=== PATIENT | female | born 1980 | race Caucasian/White ===

== ENCOUNTER 2016-06-27 09:31 | Emergency (ER) | payer OTHER ==
[~2016-06-27] VITALS: Ht 154.9 cm; Wt 54.5 kg
[2016-06-27 09:38] VITALS: BP 138/99; PULSE 156; RESP 22; O2SAT 97
--- NOTE | 2016-06-27 09:57 | ED.REPORT ---
HPI-Back Pain Under 40 Date of Service Jun 27, 2016 ED Provider: Moises Berrios MD Pt is a 36 y.o. female with a hx of chronic back pain who presents to the ED c/ o low back pain onset 2 days ago. Pt states that she typically has chronic, manageable, mid-back pain and that her recent back pain is lower than normal and more severe. She denies any recent trauma or injury. Associated SOB and lower extremity weakness. She denies fever, vomiting, nausea, abdominal pain, numbness, and urinary/fecal incontinence. Pt reports taking Tylenol everyday for pain, and has not experienced relief. Nursing Notes Stated Complaint: LOW BACK PAIN Chief Complaint: Back Pain or Injury Nursing Notes Reviewed: Yes Allergies: Coded Allergies: No Known Allergies (Unverified , 06/27/16) Miscellaneous Medications Acetaminophen (Tylenol Arthritis) 650 Mg Tablet.er 650 MG PO General Time Seen by MD: 09:56 Chief Complaint Back pain Hx Obtained From: Patient Sudden in Onset?: Yes Onset Occurred: 2 days ago Symptom Duration: Since onset Caused by: Chronic Injury Location: : Perispinal lumbar Quality: Painful Severity: Current: Moderate Past Medical History Past Medical History Thoracic outlet syndrome Past Surgical History Reports: Appendectomy Smoking History Current Every Day Smoker Ambulatory Status Independent Review of Systems Constitutional: Denies: Fever Respiratory: Reports: Shortness of breath GI: Denies: Abdominal pain, Nausea, Vomiting Female: Denies: Incontinence Musculoskeletal: Reports: Back pain Neurologic: Reports: Weakness (Lower extremity), Denies: Bladder dysfunction, Bowel dysfunction, Numbness Complete sys rev & neg: except as marked. Physical Exam Initial Vital Signs Vital Signs (First) Date Time Temp Pulse Resp B/P Pulse Ox O2 Delivery O2 Flow Rate FiO2 06/27/16 09:38 37.3 156 22 138/99 97 Room Air Initial VS: Reviewed Head / Eyes: Atraumatic, Normocephalic Extremities: Vascular intact, Neuro intact Skin: Warm, Dry, No cyanosis Psychiatric: Mood/affect normal, Behavior normal, Normal thought content General/Constitutional: Awake, Alert, No acute distress, Well appearing, Well developed, Well hydrated, Well nourished, Not toxic appearing Back: Atraumatic Flank / Spine / Paraspinal: Positive: Lumbar paraspinal tend..., Lumbar spine tender..., SI joint tender L, SI joint tender R Straight leg test negative Neurologic: Oriented X3, Speech NL, No motor deficits Bilateral lower extremity strength intact Respiratory / Chest: Atraumatic, Breath sounds NL, Breath sounds = bilat, No respiratory distress Cardiovascular: Heart rate NL, Regular rhythm, Heart sounds NL, Peripheral circulation NL Abdomen: Atraumatic, No distention Organomegaly / Mass / Hernia: Positive: Pulsatile mass (Tender midline) Interpretation & Diagnostics Lab Results Interpretation Result Diagram: 06/27/16 1111 06/27/16 1155 Test 06/27/16 11:11 06/27/16 11:55 White Blood Count 8.2th/mm3 (3.8-10.1) Red Blood Count 4.10mil/mm3 (3.90-5.20) Hemoglobin 13.1g/dL (12.0-15.6) Hematocrit 38.5% (35.0-46.0) Mean Corpuscular Volume 93.9fL (81-100) Mean Corpuscular Hemoglobin 32.0pg (27.0-35.0) Mean Corpuscular Hemoglobin Concent 34.0% (32.0-37.0) Red Cell Distribution Width 12.8% (12.3-15.4) Platelet Count 251bil/L (150-400) Neutrophils (%) (Auto) 86.4% (40-74) Lymphocytes (%) (Auto) 8.5% (14-46) Monocytes (%) (Auto) 4.7% (4-12) Eosinophils (%) (Auto) 0.1% (0-5) Basophils (%) (Auto) 0.1% (0-3) Urine Color Dark yellow (YELLOW) Urine Appearance Hazy (CLEAR,HAZY) Urine pH 6.0 (5.0-8.0) Urine Specific Farley 1.028 (1.003-1.035) Urine Protein Negativemg/dL (NEG,TRACE) Urine Glucose (UA) Negativemg/dL (NEGATIVE) Urine Ketones 40mg/dL (NEGATIVE) Urine Occult Blood Negative (NEGATIVE) Urine Nitrite Negative (NEGATIVE) Urine Bilirubin Negative (NEGATIVE) Urine Urobilinogen Normalmg/dL (NORMAL) Urine Leukocyte Esterase Small (NEGATIVE) Urine RBC 0-2/hpf (0-2) Urine WBC 11-50/hpf (0-5) Urine Epithelial Cells Few/hpf (NONE-MOD) Urine Crystals None seen (NONE SEEN) Urine Bacteria Few/hpf (NONE-FEW) Urine Hyaline Casts None/lpf (NONE) Urine Granular Casts None seen (NONE SEEN) Urine Waxy Casts None seen (NONE SEEN) Urine Red Blood Cell Casts None seen (NONE SEEN) Urine White Blood Cell Casts None seen (NONE SEEN) Urine Mucus Present (None Seen) Urine Trichomonas None seen (NONE SEEN) Urine Yeast None (NONE SEEN) Urinalysis Comment None Urine Culture Reflexed Indicated Sodium Level 141mEq/L (134-144) Potassium Level 4.0mEq/L (3.5-5.2) Chloride Level 103mEq/L (97-108) Carbon Dioxide Level 22mmol/L (18-29) Blood Urea Nitrogen 7mg/dL (6-20) Creatinine 0.60mg/dL (0.57-1.00) Estimat Glomerular Filtration Rate 162mL/min (>59) Glucose Level 115mg/dL (60-99) Calcium Level 9.9mg/dL (8.5-10.1) Total Bilirubin 0.7mg/dL (0.0-1.2) Aspartate Amino Transf (AST/SGOT) 17U/L (0-50) Alanine Aminotransferase (ALT/SGPT) 11U/L (0-32) Alkaline Phosphatase 61U/L (25-150) Total Protein 7.9g/dL (6.4-8.4) Albumin 5.0g/dL (3.4-5.0) Lipase 19U/L (13-60) US Focused Biliary IMPRESSION: 1. No evidence of abdominal aortic aneurysm. 2. No evidence of cholelithiasis or cholecystitis. Dictated by: Bill Anthony M.D. on 06/27/2016 at 11:49 Approved by: Bill Anthony M.D. on 06/27/2016 at 11:50 Re-Eval/Medical Decision Source of Hx: Old records Re-Evaluation/Progress #1: Time of Eval: 10:06 Re-Evaluation/Progress Note: Physical exam performed. Discussed need for US, pt understands and agrees with plan. Re-Evaluation/Progress #2: Time of Eval: 10:50 Re-Evaluation/Progress Note: Pt rechecked. Pt has had no relief from Toradol. Re-Evaluation/Progress #3: Time of Eval: 13:03 Re-Evaluation/Progress Note: Pt rechecked. Pt feels improved. Discussed lab result and plan for discharge, she undertsands and agrees with plan. Counseled Regarding: Diagnosis Discharge & Departure Impression: Primary Impression: UTI (urinary tract infection) Urinary tract infection type: site unspecified Hematuria presence: without hematuria Qualified Code: N39.0 - Urinary tract infection, site not specified Additional Impression: Lumbosacral strain Encounter type: initial encounter Qualified Code: S39.012A - Strain of muscle, fascia and tendon of lower back, initial encounter Disposition: Home All VS Reviewed: Yes Condition: Improved Patient Instructions: Low Back Strain (ED), Urinary Tract Infection in Women ( [place]) Additional Instructions: Thank you for entrusting us with your care today. You physical exam and ultrasound were reassuring that you have no serious mechanism for your current pain. I think the most likely explanation here is the urinary tract infection. It is possible also have a degree of musculoskeletal pain as well. For your symptoms are recommended an antibiotic for 7 days and ibuprofen 800 mg every 8 hours. Use the strong pain medication sparingly for the next one or 2 days if the ibuprofen is not sufficient by itself. Use ondansetron as needed for nausea. Follow-up Wednesday if not significantly improved. Seek care if you develop a fever, vomiting, weakness, numbness or tingling in your extremities, or any new or worsening symptoms. Referrals: OTHER,PHYSICIAN (PCP) 2-3 days Dereje Carney MD Attestation Portions of this note were transcribed by Fred Rosenberg. I, Dr. Berrios personally performed the history, physical exam and medical decision-making; I reviewed and confirmed the accuracy of the information in the transcribed note. Signed by: Maynor Rodriguez, 06/27/16 and 1306. Moises Berrios MD Jun 27, 2016 09:56 FRED ROSENBERG Jun 27, 2016 10:05
[2016-06-27] MEDS ORDERED: Ondansetron 2 mg/mL 2 mL Inj IVPUSH PRN (10:10)
[2016-06-27] MEDS ORDERED: ACET-2766 PO (10:11)
[2016-06-27] MEDS: HYDROmorphone 1 mg/mL Inj IVPUSH PRN ×3 (10:59→13:31)
[2016-06-27 11:23] LABS: BASOPHILS % (AUTO) 0.1 % (0-3); EOSINOPHILS % (AUTO) 0.1 % (0-5); MONOCYTES % (AUTO) 4.7 % (4-12); Mean Corpuscular Volume 93.9 fL (81-100); NEUTROPHILS % (AUTO) 86.4 % (40-74); Platelet Count 251 bil/L (150-400)
[2016-06-27 11:37] VITALS: BP 113/77; PULSE 73; RESP 14; O2SAT 98
--- NOTE | 2016-06-27 11:57 | DRSVH ---
PROCEDURE: US ABDOMEN, LIMITED ([id number]) INDICATIONS: tender RUQ and large pulsatile arota that is tender TECHNIQUE: Real-time focused scanning was performed of the abdomen, with image documentation. COMPARISON: None. FINDINGS: The gallbladder demonstrates no wall thickening, gallstones, or pericholecystic fluid. No sonographi c Teran's sign. No intrahepatic ductal dilatation. The common bile duct measures 2-3 mm, within normal limits. The abdominal aorta is normal in caliber measuring up to 2.1 cm. The visualized proximal common krista c arteries are also normal in caliber. IMPRESSION: 1. No evidence of abdominal aortic aneurysm. 2. No evidence of cholelithiasis or cholecystitis. Dictated by: Bill Anthony M.D. on 06/27/2016 at 11:49 Approved by: Bill Anthony M.D. on 06/27/2016 at 11:50
[2016-06-27 12:53] LABS: APPEARANCE,URINE HAZY (CLEAR,HAZY); COLOR,URINE DARK YELLOW (YELLOW)
[2016-06-27 12:54] LABS: OCCULT BLOOD,URINE NEGATIVE (NEGATIVE); UROBILINOGEN,URINE NORMAL (NORMAL)
[2016-06-27] MEDS ORDERED: Trimethoprim-Sulfa 160 mg-800 mg Tablet PO ONE (13:05)
[2016-06-27] MEDS ORDERED: HYDR-4003 PO (13:27)
[2016-06-27] MEDS ORDERED: SULF1TAB7 PO (13:27)
[2016-06-27] MEDS ORDERED: ONDA4TAB9 PO (13:27)
[2016-06-27 13:43] VITALS: BP 104/68; PULSE 69; RESP 16; O2SAT 97
== END 2016-06-27 13:44 | disposition home or self-care (01) ==
LOC: SED 09:31
DX: N39.0 Urinary tract infection, site not specified (principal); S39.012A Strain of muscle, fascia and tendon of lower back, initial encounter; X58.XXXA Exposure to other specified factors, initial encounter; Y92.9 Unspecified place or not applicable; Y93.9 Activity, unspecified; Y99.9 Unspecified external cause status; M54.9 Dorsalgia, unspecified; G89.29 Other chronic pain; F17.200 Nicotine dependence, unspecified, uncomplicated
CPT/HCPCS: 36415; 76705; 80053; 81000; 83690; 85025; 87086; 87088; 96374; 96375; 96376; 99285; J1170; J1885; J2405